=== PATIENT | male | born 1950 | race Caucasian/White ===

== ENCOUNTER → 2016-08-17 | Day surgery (SDC) | payer MEDICARE, SELFPAY ==
[~2016-08-17] MED LIST: AMBIEN10 MG PO; ELAVIL 25 MG TA25 MG PO; GLIMEPIRIDE2 MG PO; IMDUR ER TAB 6060 MG PO; JANUVIA100 MG PO; LEVOTHYROXINE75 MCG PO; LISINOPRIL40 MG PO; METFORMIN HCL1000 MG PO; NORVASC 5 MG TAB5 MG PO; PANTOPRAZOLE SO40 MG PO; PRAVASTATIN SOD40 MG PO; SULINDAC200 MG PO; TOPROL XL 100100 MG PO
== END | disposition home or self-care (01) ==
LOC: OR 08:30
PROVIDERS: Internal Medicine Gastroenterology
PROC: 0D738ZZ Dilation of Lower Esophagus, Via Natural or Artificial Opening Endoscopic (ICD-10-PCS; principal; 2016-08-17 13:30)
DX: K22.2 Esophageal obstruction (principal); K44.9 Diaphragmatic hernia without obstruction or gangrene; I10 Essential (primary) hypertension; E11.9 Type 2 diabetes mellitus without complications; G47.00 Insomnia, unspecified; E03.9 Hypothyroidism, unspecified; E78.5 Hyperlipidemia, unspecified; I05.9 Rheumatic mitral valve disease, unspecified; G47.33 Obstructive sleep apnea (adult) (pediatric); I25.10 Atherosclerotic heart disease of native coronary artery without angina pectoris; K21.9 Gastro-esophageal reflux disease without esophagitis; N52.9 Male erectile dysfunction, unspecified; K76.0 Fatty (change of) liver, not elsewhere classified; Z85.038 Personal history of other malignant neoplasm of large intestine; Z87.19 Personal history of other diseases of the digestive system; Z79.891 Long term (current) use of opiate analgesic; Z79.899 Other long term (current) drug therapy; Z87.442 Personal history of urinary calculi
CPT/HCPCS: 82962; J2250; J3010; J7030

== ENCOUNTER → 2020-07-02 | Outpatient (CLI) | payer MEDICARE ==
[~2020-07-02] MED LIST changes: +MELATONIN10 M2 PO; +NITROSTAT0.4 MG SL
== END ==
LOC: US 08:00 → EXRD 09:30
DX: R10.9 Unspecified abdominal pain (principal); K76.0 Fatty (change of) liver, not elsewhere classified
CPT/HCPCS: 76700

== ENCOUNTER → 2021-02-17 | Day surgery (SDC) | payer MEDICARE ==
[~2021-02-17] MED LIST changes: +HYDROCHLOROTH12.5 M1 PO; +OZEMPIC0.25 MG/0. SQ
== END | disposition home or self-care (01) ==
LOC: OR 06:31
DX: D12.2 Benign neoplasm of ascending colon (principal); D12.0 Benign neoplasm of cecum; K44.9 Diaphragmatic hernia without obstruction or gangrene; K21.9 Gastro-esophageal reflux disease without esophagitis; E03.9 Hypothyroidism, unspecified; E78.5 Hyperlipidemia, unspecified; D64.9 Anemia, unspecified; Z20.822 Contact with and (suspected) exposure to COVID-19; I25.10 Atherosclerotic heart disease of native coronary artery without angina pectoris; I12.9 Hypertensive chronic kidney disease with stage 1 through stage 4 chronic kidney disease, or unspecified chronic kidney disease; E11.22 Type 2 diabetes mellitus with diabetic chronic kidney disease; N18.9 Chronic kidney disease, unspecified; K57.31 Diverticulosis of large intestine without perforation or abscess with bleeding; K64.1 Second degree hemorrhoids
CPT/HCPCS: 82962; J2704; J7040

== ENCOUNTER → 2021-03-04 | Outpatient (CLI) | payer MEDICARE | LOC: US 13:14 | DX: N28.1 Cyst of kidney, acquired (principal) ==

== ENCOUNTER → 2021-05-18 | Outpatient (CLI) | payer MEDICARE | LOC: EXRD 09:21 | DX: K76.0 Fatty (change of) liver, not elsewhere classified (principal) | CPT/HCPCS: 76700 ==

== ENCOUNTER → 2021-10-28 | Outpatient (CLI) | payer MEDICARE | LOC: RAD 09:55 | DX: R07.89 Other chest pain (principal) | CPT/HCPCS: 71045; 71101 ==

== ENCOUNTER → 2021-11-02 | Outpatient (CLI) | payer MEDICARE | LOC: EXRD 10:40 | DX: N28.1 Cyst of kidney, acquired (principal) | CPT/HCPCS: 76775 ==